=== PATIENT | male | born 1980 | race Caucasian/White ===

== ENCOUNTER 2022-08-31 17:21 | Inpatient (IN) | payer BC ==
[2022-08-31] MEDS ORDERED: Adenosine 6 MG/2 ML VIAL ONE (17:42)
[2022-08-31] MEDS ORDERED: Diltiazem 125 MG/25 ML FS SCH (18:00)
[2022-08-31] MEDS ORDERED: Enoxaparin Sodium 100 MG/ML SYRINGE ONE (18:23)
[2022-08-31 18:27] LABS: #Basophils 0.1 10x3/uL (0.0-0.2); #Eosinphils 0.1 10x3/uL (0.0-0.5); #Monocytes 0.8 10x3/uL (0.0-1.1); #Neutrophils 6.4 10x3/uL (1.5-8.4); %Basophils 0.5 % (0.0-2.0); %Eosinophils 0.8 % (0.0-6.0); %Lymphocytes 30.7 % (18.0-47.0); %Monocytes 7.5 % (0.0-10.0); %Neutrophils 59.8 % (40.0-75.0); Hemoglobin 15.4 g/dL (13.5-17.5); Mean Corpuscular HGB CONC 34.6 g/dL (32.0-36.0); Mean Corpuscular Volume 86.6 fl (81.2-95.1); Mean Platelet Volume 11.1 fl (7.4-10.4); Platelet Count 263 10x3/uL (150-450); RBC Distribution Width 12.7 % (11.5-14.5); Red Blood Cell (RBC) Count 5.14 10x6/uL (4.32-5.72); White Blood Cell (WBC) Count 10.7 10x3/uL (3.5-10.5)
[2022-08-31 18:39] LABS: ALT (SGPT) 59 U/L (8-55); AST (SGOT) 28 U/L (5-34); Albumin 4.9 g/dL (3.5-5.0); Alkaline Phosphatase 54 U/L (40-110); Anion Gap 16 mmol/L (10-20); BUN (Urea Nitrogen) 12 mg/dL (8.9-20.6); Bilirubin, Total 1.1 mg/dL (0.2-1.2); Calc. Creatinine Clearance 0 mL/min (70-130); Calcium 9.7 mg/dL (7.8-10.44); Carbon Dioxide 26 mmol/L (22-29); Chloride 102 mmol/L (98-107); Estimated GFR 106; Globulin 2.9 g/dL (2.4-3.5); Glucose 81 mg/dL (70-105); Lipase 28 U/L (8-78); Protein, Total 7.8 g/dL (6.0-8.3); Sodium 140 mmol/L (136-145)
[2022-08-31] MEDS ORDERED: Acetaminophen 500 MG TAB ONE (18:39)
[2022-08-31] MEDS ORDERED: Digoxin 0.5 MG/2 ML AMP ONE (19:19)
[2022-08-31] MEDS ORDERED: HYDROcodone/Acetaminophen 5/325 mg Tablet PO PRN (20:37)
[2022-08-31] MEDS ORDERED: Ondansetron PF 4 MG/2 ML Vial IVP PRN (20:37)
[2022-08-31] MEDS ORDERED: Zolpidem Tartrate 5 MG TAB PO PRN (20:37)
[2022-08-31] MEDS ORDERED: Guaifenesin DM 100-10/5 ML UDCUP PO PRN (20:37)
[2022-08-31] MEDS ORDERED: Calcium Carbonate 500 MG ChewTAB PO PRN (20:37)
[2022-08-31] MEDS ORDERED: Senokot S 8.6-50 MG TAB PO PRN (20:37)
[2022-08-31 20:54] LABS: Troponin I Less than 0.010 ng/mL (< 0.028)
[2022-08-31] MEDS ORDERED: Metoprolol Tartrate 25 MG TAB PO SCH (21:45)
[2022-08-31] MEDS ORDERED: Diltiazem 125 MG in Sodium Chloride 0.9% 100 ML IVPB SCH (22:00)
[2022-08-31] MEDS ORDERED: Dronedarone HCl 400 MG TAB PO SCH (22:00)
[2022-08-31] MEDS ORDERED: Metoprolol Tartrate 25 MG TAB ONE (22:42)
[2022-08-31] MEDS: Acetaminophen 325 MG TAB PO PRN (23:15)
[2022-08-31] MEDS ORDERED: Acetaminophen 325 MG TAB ONE (23:17)
[2022-08-31 23:58] VITALS: BMI 41.9
[2022-09-01 00:04] LABS: SARS-CoV-2 NAA Rapid Test Not Detected (NotDetected)
[2022-09-01 00:09] LABS: SARS-CoV-2 NAA Rapid Test Not Detected (NotDetected)
[2022-09-01 00:23] LABS: Troponin I Less than 0.010 ng/mL (< 0.028)
[2022-09-01] MEDS ORDERED: FLU VACC QS2022-23(6MOS UP)/PF 60 MCG/0.5 ML SYRINGE IM ONE (00:30)
[2022-09-01 03:34] LABS: Bilirubin Neg (Negative); Blood, Urine 50 (Negative); Clarity Clear (Clear); Glucose, Urine (Dipstick) Normal (Negative); Ketone, Urine Negative (Negative); Leukocyte Negative (Negative); Nitrite Negative (Negative); Protein, Urine (Dipstick) Negative (Neg-Trace); Urobilinogen Normal mg/dL (Less than 2)
[2022-09-01 03:39] LABS: Bacteria/HPF Rare-Few HPF (None Seen); Squamous Epithelial 0-3 HPF (0-3)
[2022-09-01] MEDS ORDERED: Enoxaparin Sodium 120 MG/0.8 ML SYRINGE SC SCH (06:00)
[2022-09-01 06:01] LABS: #Eosinphils 0.1 10x3/uL (0.0-0.5); #Monocytes 0.6 10x3/uL (0.0-1.1); #Neutrophils 4.1 10x3/uL (1.5-8.4); %Basophils 0.5 % (0.0-2.0); %Eosinophils 1.6 % (0.0-6.0); %Lymphocytes 34.5 % (18.0-47.0); %Neutrophils 54.9 % (40.0-75.0); Hemoglobin 13.9 g/dL (13.5-17.5); Mean Corpuscular HGB CONC 34.2 g/dL (32.0-36.0); Mean Corpuscular Volume 87.7 fl (81.2-95.1); Mean Platelet Volume 11.7 fl (7.4-10.4); Platelet Count 228 10x3/uL (150-450); RBC Distribution Width 13.1 % (11.5-14.5); Red Blood Cell (RBC) Count 4.63 10x6/uL (4.32-5.72); White Blood Cell (WBC) Count 7.4 10x3/uL (3.5-10.5)
[2022-09-01] MEDS: Enoxaparin Sodium 100 MG/ML SYRINGE SC SCH ×2 (06:15→17:58)
[2022-09-01 06:22] LABS: Anion Gap 14 mmol/L (10-20); BUN (Urea Nitrogen) 12 mg/dL (8.9-20.6); Calc. Creatinine Clearance 252 mL/min (70-130); Calcium 8.8 mg/dL (7.8-10.44); Carbon Dioxide 23 mmol/L (22-29); Chloride 107 mmol/L (98-107); Estimated GFR 117; Glucose 85 mg/dL (70-105); Magnesium 2.1 mg/dL (1.6-2.6); Potassium 3.8 mmol/L (3.5-5.1); Sodium 140 mmol/L (136-145)
[2022-09-01] MEDS: Enoxaparin Sodium 30 MG/0.3 ML SYRINGE SC SCH ×2 (07:39→17:58)
[2022-09-01] MEDS: Metoprolol Tartrate 25 MG TAB PO SCH ×4 (07:39→20:14)
[2022-09-01] MEDS ORDERED: Dronedarone HCl 400 MG TAB PO SCH (08:00)
[2022-09-01] MEDS ORDERED: Amiodarone 450 MG in Dextrose 5% in Water 250 ML IVPB SCH (11:15)
[2022-09-01] MEDS ORDERED: Amiodarone In Dextrose 150 MG in Premix Bag 1 BAG IVPB SCH (11:45)
[2022-09-01] MEDS: Amiodarone In Dextrose 200 ML IVPB SCH ×2 (11:49→17:23)
[2022-09-01] MEDS: Acetaminophen 325 MG TAB PO PRN (16:04)
[2022-09-02] MEDS: Amiodarone In Dextrose 200 ML IVPB SCH ×2 (04:50→18:05)
[2022-09-02] MEDS: Enoxaparin Sodium 100 MG/ML SYRINGE SC SCH ×2 (05:29→17:20)
[2022-09-02] MEDS: Enoxaparin Sodium 30 MG/0.3 ML SYRINGE SC SCH ×2 (05:29→17:20)
[2022-09-02] MEDS: Metoprolol Tartrate 25 MG TAB PO SCH ×2 (08:20→20:02)
[2022-09-02] MEDS ORDERED: Digoxin 0.5 MG/2 ML AMP SLOW IVP SCH ×2 (08:45→18:45)
[2022-09-03] MEDS: Enoxaparin Sodium 100 MG/ML SYRINGE SC SCH (06:08)
[2022-09-03] MEDS: Amiodarone In Dextrose 200 ML IVPB SCH (06:09)
[2022-09-03] MEDS: Enoxaparin Sodium 30 MG/0.3 ML SYRINGE SC SCH (06:09)
[2022-09-03] MEDS: Metoprolol Tartrate 25 MG TAB PO SCH (09:04)
[2022-09-03] MEDS ORDERED: PROPOFOL 40 ML ONE (10:11)
[2022-09-03 13:17] VITALS: BP 124/72; TEMP 98
== END 2022-09-03 14:25 | disposition home or self-care (01) | DRG 309 ==
LOC: EDBD → CSHERS 17:21 → UNDOADMIN 21:10 → CSHERHOLD 21:10 → CSHIMCU 21:10
PROVIDERS: ADMIT Student in an Organized Health Care Education/Training Program; ATTEND Family Medicine
PROC: 5A2204Z Restoration of Cardiac Rhythm, Single (ICD-10-PCS; principal; 2022-09-03)
PROC: B24BZZ4 Ultrasonography of Heart with Aorta, Transesophageal (ICD-10-PCS; 2022-09-03)
DX: I48.92 Unspecified atrial flutter (principal); Z68.41 Body mass index [BMI] 40.0-44.9, adult; Z20.822 Contact with and (suspected) exposure to COVID-19; I48.0 Paroxysmal atrial fibrillation; G47.33 Obstructive sleep apnea (adult) (pediatric); I47.1 Supraventricular tachycardia; K21.9 Gastro-esophageal reflux disease without esophagitis; E66.01 Morbid (severe) obesity due to excess calories; Z79.82 Long term (current) use of aspirin; Z79.899 Other long term (current) drug therapy; Z82.49 Family history of ischemic heart disease and other diseases of the circulatory system; Z82.3 Family history of stroke
CPT/HCPCS: 36415; 71045; 80048; 80053; 81001; 82550; 83605; 83690; 83735; 84443; 84484; 85025; 92960; 93005; 93010; 93306; 93312; 96372; 96374; 96375; J0153; J0282; J1160; J1650; J2704; U0002

== ENCOUNTER 2022-09-04 16:16 | Observation (INO) | payer BC ==
[~2022-09-04 16:16] MED LIST: Iopamidol 300 61% 100 ML VIAL FS ONE
[2022-09-04] MEDS ORDERED: Morphine 4 MG/ML VIAL ONE (17:50)
[2022-09-04] MEDS ORDERED: Ondansetron PF 4 MG/2 ML Vial ONE (17:51)
[2022-09-04 18:06] LABS: #Monocytes 1.1 10x3/uL (0.0-1.1); #Neutrophils 12.3 10x3/uL (1.5-8.4); %Basophils 0.3 % (0.0-2.0); %Lymphocytes 8.2 % (18.0-47.0); %Monocytes 7.5 % (0.0-10.0); %Neutrophils 83.3 % (40.0-75.0); Mean Corpuscular HGB CONC 36.1 g/dL (32.0-36.0); Mean Corpuscular Hemoglobin 30.4 pg (27.0-33.0); Mean Platelet Volume 10.3 fl (7.4-10.4); Platelet Count 262 10x3/uL (150-450); RBC Distribution Width 12.8 % (11.5-14.5); Red Blood Cell (RBC) Count 4.94 10x6/uL (4.32-5.72); White Blood Cell (WBC) Count 14.7 10x3/uL (3.5-10.5)
[2022-09-04 18:20] LABS: ALT (SGPT) 77 U/L (8-55); AST (SGOT) 47 U/L (5-34); Albumin 4.9 g/dL (3.5-5.0); Alkaline Phosphatase 54 U/L (40-110); Anion Gap 17 mmol/L (10-20); BUN (Urea Nitrogen) 19 mg/dL (8.9-20.6); Calc. Creatinine Clearance 0 mL/min (70-130); Calcium 9.7 mg/dL (7.8-10.44); Carbon Dioxide 23 mmol/L (22-29); Chloride 100 mmol/L (98-107); Estimated GFR 67; Glucose 98 mg/dL (70-105); Lipase 18 U/L (8-78); Potassium 4.4 mmol/L (3.5-5.1); Protein, Total 7.9 g/dL (6.0-8.3); Sodium 136 mmol/L (136-145)
[2022-09-04] MEDS ORDERED: Fentanyl 100 MCG/2 ML VIAL ONE (19:15)
[2022-09-04 19:40] LABS: Bilirubin Neg (Negative); Blood, Urine 10 (Negative); Clarity Clear (Clear); Glucose, Urine (Dipstick) Normal (Negative); Ketone, Urine Negative (Negative); Leukocyte Negative (Negative); Nitrite Negative (Negative); Protein, Urine (Dipstick) Negative (Neg-Trace)
[2022-09-04 19:49] LABS: Bacteria/HPF None Seen HPF (None Seen); RBC/HPF 0-3 HPF (0-3); Squamous Epithelial None Seen HPF (0-3); WBC/HPF None Seen HPF (0-3)
[2022-09-04] MEDS ORDERED: Ketorolac Tromethamine 30 MG/ML VIAL ONE (20:43)
[2022-09-04] MEDS ORDERED: Piperacillin/Tazobactam 3.375 GM VIAL ONE (21:16)
[2022-09-04] MEDS ORDERED: Senokot S 8.6-50 MG TAB PO PRN (21:18)
[2022-09-04] MEDS ORDERED: Calcium Carbonate 500 MG ChewTAB PO PRN (21:18)
[2022-09-04] MEDS ORDERED: Zolpidem Tartrate 5 MG TAB PO PRN (21:18)
[2022-09-04] MEDS ORDERED: Acetaminophen 325 MG TAB PO PRN (21:18)
[2022-09-04] MEDS ORDERED: Guaifenesin DM 100-10/5 ML UDCUP PO PRN (21:18)
[2022-09-04] MEDS ORDERED: HYDROcodone/Acetaminophen 5/325 mg Tablet PO PRN (21:18)
[2022-09-04] MEDS ORDERED: Ondansetron PF 4 MG/2 ML Vial IVP PRN (21:18)
[2022-09-04] MEDS ORDERED: Morphine 2 MG/ML VIAL SLOW IVP PRN (21:20)
[2022-09-04] MEDS ORDERED: Morphine 4 MG/ML VIAL SLOW IVP PRN (21:20)
[2022-09-04] MEDS ORDERED: Famotidine/PF 20 mg/2ml Vial SLOW IVP SCH (21:30)
[2022-09-04] MEDS ORDERED: Tamsulosin HCl 0.4 MG CAP PO SCH (21:45)
[2022-09-04 22:11] LABS: SARS-CoV-2 NAA Rapid Test Not Detected (NotDetected)
[2022-09-05] MEDS ORDERED: Famotidine/PF 20 mg/2ml Vial ONE ×2 (00:34→09:02)
[2022-09-05] MEDS ORDERED: Tamsulosin HCl 0.4 MG CAP ONE (00:36)
[2022-09-05] MEDS: Lactated Ringer's 1,000 ML IV SCH ×2 (00:50→07:30)
[2022-09-05 04:02] LABS: #Monocytes 1.1 10x3/uL (0.0-1.1); #Neutrophils 8.1 10x3/uL (1.5-8.4); %Basophils 0.2 % (0.0-2.0); %Eosinophils 0.3 % (0.0-6.0); %Lymphocytes 18.7 % (18.0-47.0); %Monocytes 9.9 % (0.0-10.0); %Neutrophils 70.4 % (40.0-75.0); Hemoglobin 12.9 g/dL (13.5-17.5); Mean Corpuscular HGB CONC 34.4 g/dL (32.0-36.0); Mean Corpuscular Hemoglobin 29.9 pg (27.0-33.0); Mean Corpuscular Volume 86.8 fl (81.2-95.1); Mean Platelet Volume 10.4 fl (7.4-10.4); Platelet Count 208 10x3/uL (150-450); RBC Distribution Width 13.2 % (11.5-14.5); Red Blood Cell (RBC) Count 4.32 10x6/uL (4.32-5.72); White Blood Cell (WBC) Count 11.5 10x3/uL (3.5-10.5)
[2022-09-05] MEDS ORDERED: Piperacillin/Tazobactam 3.375 GM VIAL ONE (04:11)
[2022-09-05 04:16] LABS: ALT (SGPT) 62 U/L (8-55); AST (SGOT) 36 U/L (5-34); Alkaline Phosphatase 44 U/L (40-110); Anion Gap 13 mmol/L (10-20); BUN (Urea Nitrogen) 21 mg/dL (8.9-20.6); Calc. Creatinine Clearance 0 mL/min (70-130); Calcium 8.7 mg/dL (7.8-10.44); Carbon Dioxide 23 mmol/L (22-29); Cardiac Risk 5.1 (Less than 4.5); Chloride 103 mmol/L (98-107); Cholesterol 138 mg/dl (< 200 Desired); Estimated GFR 58; Globulin 2.6 g/dL (2.4-3.5); Glucose 100 mg/dL (70-105); HDL Cholesterol 27 mg/dL (>60 Neg Risk); LDL Cholesterol, Calculated 64 mg/dL; Potassium 4.3 mmol/L (3.5-5.1); Protein, Total 6.6 g/dL (6.0-8.3); Sodium 135 mmol/L (136-145); Triglycerides 236 mg/dL (Less than 150)
[2022-09-05] MEDS ORDERED: Piperacillin/Tazobactam 3.375 GM in Sodium Chloride 0.9% 100 ML IVPB SCH (06:00)
[2022-09-05] MEDS ORDERED: Iopamidol 15 ML ONE (07:31)
[2022-09-05 07:36] VITALS: BMI 41.1
[2022-09-05] MEDS ORDERED: Enoxaparin Sodium 40 MG/0.4 ML SYRINGE SC SCH (09:00)
[2022-09-05] MEDS ORDERED: Famotidine/PF 20 mg/2ml Vial SLOW IVP SCH (09:00)
[2022-09-05] MEDS ORDERED: Aspirin 81 mg Enteric Coated Tablet PO SCH (09:00)
[2022-09-05] MEDS ORDERED: Enoxaparin Sodium 40 MG/0.4 ML SYRINGE ONE (09:02)
[2022-09-05] MEDS ORDERED: Aspirin 81 mg Enteric Coated Tablet ONE (09:02)
[2022-09-05 09:40] VITALS: TEMP 97.7
[2022-09-05 09:42] VITALS: BP 110/64
[2022-09-05] MEDS ORDERED: Midazolam HCl 2 mg/2 ml Vial ONE (11:36)
[2022-09-05] MEDS ORDERED: ePHEDrine Sulfate 50 MG/10 ML VIAL ONE (11:36)
[2022-09-05] MEDS ORDERED: Fentanyl 100 MCG/2 ML VIAL ONE ×2 (11:36→12:14)
[2022-09-05] MEDS ORDERED: PROPOFOL 20 ML ONE (11:36)
[2022-09-05] MEDS ORDERED: Rocuronium Bromide 10 MG/ML (10ML VIAL) ONE (12:09)
[2022-09-05] MEDS ORDERED: PHENYLEPHRINE-NS 100 MCG/ML 10 ML SYRINGE ONE (12:09)
[2022-09-05] MEDS ORDERED: Ondansetron PF 4 MG/2 ML Vial ONE (12:09)
[2022-09-05] MEDS ORDERED: Dexamethasone 4 mg/ml Vial ONE (12:09)
[2022-09-05] MEDS ORDERED: Lidocaine 4% PF 5 ML AMP ONE (12:09)
[2022-09-05] MEDS ORDERED: Succinylcholine 200 MG/10 ml SYRINGE FS ONE (12:09)
[2022-09-05] MEDS ORDERED: Levofloxacin 500 mg/D5W 100 ml Premix Bag ONE (12:10)
[2022-09-05] MEDS ORDERED: Tamsulosin HCl 0.4 MG CAP PO SCH (21:00)
== END 2022-09-05 13:55 | disposition home or self-care (01) ==
LOC: EDBD → CSHERS 16:16 → INTOOBSV 21:18 → CSHERHOLD 21:18 → UNDOADMIN 09-05 01:11 → CSHERHOLD 09-05 01:11
PROVIDERS: ADMIT Student in an Organized Health Care Education/Training Program; ATTEND Internal Medicine
PROC: 0T778DZ Dilation of Left Ureter with Intraluminal Device, Via Natural or Artificial Opening Endoscopic (ICD-10-PCS; principal; 2022-09-05)
DX: N13.2 Hydronephrosis with renal and ureteral calculous obstruction (principal); N17.9 Acute kidney failure, unspecified; I48.0 Paroxysmal atrial fibrillation; Z20.822 Contact with and (suspected) exposure to COVID-19; E66.01 Morbid (severe) obesity due to excess calories; Z68.41 Body mass index [BMI] 40.0-44.9, adult; G47.33 Obstructive sleep apnea (adult) (pediatric); R74.01 Elevation of levels of liver transaminase levels; R09.02 Hypoxemia; I48.92 Unspecified atrial flutter; Z79.82 Long term (current) use of aspirin; Z79.899 Other long term (current) drug therapy; Z79.01 Long term (current) use of anticoagulants
CPT/HCPCS: 36415; 51600; 74177; 74430; 80053; 80061; 81003; 81015; 83605; 83690; 84145; 85025; 87040; 96374; 96375; C2617; G0378; J1100; J1650; J1885; J1956; J2250; J2270; J2405; J2543; J2704; J3010; J3370; J3490; J7120; Q9967; S0028; U0002

== ENCOUNTER 2022-11-18 11:46 | Emergency (ER) | payer BC ==
[2022-11-18 12:41] LABS: #Basophils 0.1 10x3/uL (0.0-0.2); #Eosinphils 0.1 10x3/uL (0.0-0.5); #Monocytes 0.8 10x3/uL (0.0-1.1); #Neutrophils 5.3 10x3/uL (1.5-8.4); %Basophils 0.6 % (0.0-2.0); %Eosinophils 1.3 % (0.0-6.0); Hemoglobin 15.7 g/dL (13.5-17.5); Mean Corpuscular HGB CONC 35.8 g/dL (32.0-36.0); Mean Corpuscular Hemoglobin 30.8 pg (27.0-33.0); Mean Corpuscular Volume 86.2 fl (81.2-95.1); Mean Platelet Volume 10.3 fl (7.4-10.4); Platelet Count 259 10x3/uL (150-450); RBC Distribution Width 13.4 % (11.5-14.5); Red Blood Cell (RBC) Count 5.09 10x6/uL (4.32-5.72); White Blood Cell (WBC) Count 9.7 10x3/uL (3.5-10.5)
[2022-11-18 12:50] LABS: ALT (SGPT) 50 U/L (8-55); AST (SGOT) 29 U/L (5-34); Albumin 4.6 g/dL (3.5-5.0); Alkaline Phosphatase 51 U/L (40-110); Anion Gap 15 mmol/L (10-20); BUN (Urea Nitrogen) 14 mg/dL (8.9-20.6); Bilirubin, Total 0.9 mg/dL (0.2-1.2); Calc. Creatinine Clearance 0 mL/min (70-130); Calcium 9.6 mg/dL (7.8-10.44); Carbon Dioxide 23 mmol/L (22-29); Chloride 102 mmol/L (98-107); Estimated GFR 116; Globulin 2.9 g/dL (2.4-3.5); Glucose 85 mg/dL (70-105); Magnesium 1.8 mg/dL (1.6-2.6); Potassium 3.8 mmol/L (3.5-5.1); Protein, Total 7.5 g/dL (6.0-8.3); Sodium 136 mmol/L (136-145)
== END 2022-11-18 13:35 | disposition home or self-care (01) ==
LOC: CSHERS 11:46
DX: I48.92 Unspecified atrial flutter (principal)
CPT/HCPCS: 71045; 80053; 83735; 84443; 85025; 93005; 94760; 96374

== ENCOUNTER 2023-10-17 09:33 | Emergency (ER) | payer BC ==
[2023-10-17 10:27] LABS: #Basophils 0.1 10x3/uL (0.0-0.2); #Eosinphils 0.2 10x3/uL (0.0-0.5); #Monocytes 0.6 10x3/uL (0.0-1.1); #Neutrophils 3.8 10x3/uL (1.5-8.4); %Basophils 0.7 % (0.0-2.0); %Eosinophils 2.1 % (0.0-6.0); %Lymphocytes 38.4 % (18.0-47.0); %Monocytes 7.8 % (0.0-10.0); %Neutrophils 49.8 % (40.0-75.0); Hematocrit 46.4 % (38.8-50.0); Mean Corpuscular HGB CONC 34.5 g/dL (32.0-36.0); Mean Corpuscular Hemoglobin 29.7 pg (27.0-33.0); Mean Corpuscular Volume 86.1 fl (81.2-95.1); Mean Platelet Volume 10.7 fl (7.4-10.4); Platelet Count 213 10x3/uL (150-450); RBC Distribution Width 13.5 % (11.5-14.5); Red Blood Cell (RBC) Count 5.39 10x6/uL (4.32-5.72); White Blood Cell (WBC) Count 7.6 10x3/uL (3.5-10.5)
[2023-10-17 10:51] LABS: ALT (SGPT) 40 U/L (8-55); AST (SGOT) 29 U/L (5-34); Albumin 4.4 g/dL (3.5-5.0); Alkaline Phosphatase 54 U/L (40-110); Anion Gap 16 mmol/L (10-20); BUN (Urea Nitrogen) 11 mg/dL (8.9-20.6); Bilirubin, Total 0.5 mg/dL (0.2-1.2); Calc. Creatinine Clearance 0 mL/min (70-130); Calcium 8.9 mg/dL (7.8-10.44); Carbon Dioxide 21 mmol/L (22-29); Chloride 106 mmol/L (98-107); Estimated GFR 117; Globulin 2.6 g/dL (2.4-3.5); Glucose 96 mg/dL (70-105); Potassium 4.3 mmol/L (3.5-5.1); Sodium 139 mmol/L (136-145)
== END 2023-10-17 14:27 | disposition home or self-care (01) ==
LOC: CSHERS 09:33
DX: I48.91 Unspecified atrial fibrillation (principal); Z79.01 Long term (current) use of anticoagulants
CPT/HCPCS: 71045; 80053; 85025; 92960; 93005; 94760; 96374